=== PATIENT | female | born 1985 | race Caucasian/White ===

== ENCOUNTER 2016-10-23 21:47 | Emergency (ER) | payer OTHER ==
[~2016-10-23] VITALS: Ht 162.6 cm; Wt 79.0 kg
[2016-10-23 22:04] VITALS: Ht 162.6 cm; Wt 79.0 kg
--- NOTE | 2016-10-23 23:23 | ERA ---
ER Documentation Chief Complaint Date/Time DATE: 10/23/16 TIME: 23:20 Chief Complaint sore throat x 2 day HPI This is an overweight otherwise healthy 31-year-old female who presents with a chief complaint of sore throat 2 days. Patient has taken ibuprofen with minimal to moderate relief. Patient states when she lies down she has slightly more difficult time breathing. The patient denies shortness of breath, dysphagia, change in voice, drooling, fatigue, oral swelling, ear pain or meningismus. Patients vaccination status is up to date. Patient has no other complaints at this time's and describes no other associated manifestations. ROS All systems reviewed and are negative except as per history of present illness. Medications Home Meds Active Scripts Ibuprofen* (Ibuprofen*) 400 Mg Tablet, 400 MG PO Q6H Y for PAIN for 10 Days, TAB Prov:HENNY KENT PA-C 10/23/16 Amoxicillin* (Amoxicillin*) 500 Mg Cap, 500 MG PO BID for 10 Days, #20 CAP Prov:HENNY KENT PA-C 10/23/16 Allergies Allergies: Coded Allergies: No Known Allergy (Unverified , 10/23/16) PMhx/Soc Medical and Surgical Hx: pt denies Medical Hx, pt denies Surgical Hx Hx Alcohol Use: No Hx Substance Use: No Hx Tobacco Use: No Smoking Status: Never smoker Physical Exam Vitals Vital Signs Date Time Temp Pulse Resp B/P Pulse Ox O2 Delivery O2 Flow Rate FiO2 10/23/16 22:04 102.6 120 20 136/73 98 Physical Exam Const: Healthy-appearing, well-nourished, well-developed, no acute distress. Throat: Erythematous oropharynx with enlarged tonsils with exudates bilaterally. Moist mucous membranes. Neck: Anterior cervical lymphadenopathy bilaterally. No posterior cervical lymphadenopathy, masses or goiter palpated. Full range of motion. Supple. Trachea midline. ~ No meningismus. Skin: No petechiae or rashes. No ulcer, induration, jaundice. Good turgor. Resp: No dyspnea, stridor, tripoding or drooling. Good air movement. Clear to auscultation bilaterally. Head: Normocephalic, Atraumatic. No sinus tenderness. Eyes: Non-injected; No scleral erythema, discharge or foreign body. EOMI bilaterally. PERRLA. Ears: Normal External Ears, EACs clear, TM normal bilaterally without erythema. Nose: Normal nose without discharge, septal deviation, or sinus tenderness. Cardio: Regular rate and rhythm; No murmurs, gallops or rubs auscultated. No JVD grossly observed. Radial and posterior tibial pulses 2+ bilaterally. Capillary refill less than 2 seconds. Abd: Soft, non tender, non distended. No guarding, masses. Normal bowel sounds. No McBurney's point tenderness. MS: Normal motor strength, normal tone with gross examination. Back: No midline, flank or CVA tenderness. Ext: No cyanosis, edema or palpable cord. Normal movement of all extremities grossly observed. Neur: Awake, alert and oriented x3. Neurovascularly intact bilaterally. Psych: Active and alert. Normal Mood and Affect. Oriented x3. Results 24 hrs Current Medications Medications (Trade) Dose Ordered Sig/Jennifer Route PRN Reason Start Time Stop Time Status Last Admin Dose Admin Dexamethasone (Decadron) 4 mg ONCE ONCE PO 10/23/16 23:30 10/23/16 23:31 DC 10/23/16 23:27 Diphenhydramine HCl (Benadryl) 25 mg ONCE ONCE PO 10/23/16 23:30 10/23/16 23:31 DC 10/23/16 23:28 Procedures/MDM Patient was evaluated and worked up for pharyngitis presenting as described in the history and physical exam. Patient was given 4 mg p.o. of Decadron and 25 mg p.o. of Benadryl in the ED with improvement of symptoms. Patient along has a difficult time breathing. The patient has a [place] Criteria of 4 out of 5. The current most likely diagnosis is group B streptococcal pharyngitis versus tonsillitis. The treatment plan will thus include out-patient antibiotics and supportive measures. At this time I do not suspect diphtheria, Melba-Tan virus, peritonsillar abscess, epiglottitis, retropharyngeal abscess, parapharyngeal abscess, or allergic reaction. I no longer have suspicion for endangerment of the airway. I have spoke with the patient regarding their condition and future management. They have verbally responded that they understand their status and treatment plan which they have also agreed to. The patients vitals are stable, and their current condition is appropriate for discharge. The patient will be given discharge instructions with return precautions. Discharge medications: Amoxicillin 500 mg p.o. twice daily, ibuprofen 400 mg every 6 hours as needed. Departure Diagnosis: Primary Impression: Acute bacterial tonsillitis Additional Impression: Sore throat Condition: Stable Additional Instructions: Follow up with your PCP within the next 1-3 days for a more thorough evaluation and a possible referral to a specialist. Return the the emergency department immediately if symptoms worsen or change. If you have any questions regarding medications, ask your pharmacist or us before you leave. If any adverse reactions occur while taking your medications, discontinue the treatment and return to the emergency department immediately. Take your medications as directed, and complete the entire course of treatment. HENNY KENT PA-C Oct 23, 2016 23:23
[2016-10-23] MEDS ORDERED: DEXAMETHASONE 4 MG TAB PO ONE (23:30)
[2016-10-23] MEDS ORDERED: DIPHENHYDRAMINE 25 MG CAP PO ONE (23:30)
[2016-10-23] MEDS ORDERED: IBUP400T22 PO (23:38)
[2016-10-23] MEDS ORDERED: AMO500 PO (23:38)
== END 2016-10-24 00:03 | disposition home or self-care (01) ==
LOC: FTE 21:47
DX: J03.90 Acute tonsillitis, unspecified (principal)
CPT/HCPCS: Z7502; Z7610; 99283

== ENCOUNTER 2016-10-25 21:34 | Emergency (ER) | payer OTHER ==
[~2016-10-25] VITALS: Ht 170.2 cm; Wt 78.0 kg
[~2016-10-25 21:34] MED LIST: AMO500 PO; IBUP400T22 PO
[2016-10-25 21:52] VITALS: Ht 170.2 cm; Wt 78.0 kg
[2016-10-25] MEDS ORDERED: ACETAMINOPHEN 325 MG TAB PO ONE (23:00)
[2016-10-25] MEDS ORDERED: IBUPROFEN 600 MG TAB PO ONE (23:00)
--- NOTE | 2016-10-25 23:08 | ERD ---
ER Documentation Chief Complaint Date/Time DATE: 10/25/16 TIME: 23:02 Chief Complaint Continuous sore throat; was here last sunday for sore throat HPI 31-year-old female presents here in emergency department for complaints of continued sore throat, gingival inflammation, patient was seen here 3 days ago, was diagnosed acute bacterial pharyngitis, possible strep throat, patient's currently taking amoxicillin, patient states that the symptoms does not improve and gotten worse. Patient continues to have the pain, throbbing pain 8/10 scale , is worse upon swallowing. Patient continues to have fever. ROS All systems reviewed and are negative except as per history of present illness. Medications Home Meds Active Scripts Ibuprofen* (Ibuprofen*) 400 Mg Tablet, 400 MG PO Q6H Y for PAIN for 10 Days, TAB Prov:HENNY KENT PA-C 10/23/16 Amoxicillin* (Amoxicillin*) 500 Mg Cap, 500 MG PO BID for 10 Days, #20 CAP Prov:HENNY KENT PA-C 10/23/16 Allergies Allergies: Coded Allergies: No Known Allergy (Unverified , 10/23/16) PMhx/Soc Medical and Surgical Hx: pt denies Medical Hx, pt denies Surgical Hx Hx Alcohol Use: No Hx Substance Use: No Hx Tobacco Use: No Smoking Status: Never smoker FmHx Family History: No coronary disease, No diabetes, No other Physical Exam Vitals Vital Signs Date Time Temp Pulse Resp B/P Pulse Ox O2 Delivery O2 Flow Rate FiO2 10/25/16 21:52 100.6 100 20 122/69 98 Physical Exam GENERAL: The patient is well developed and appropriate for usual state of health, in no apparent distress. HEENT: Atraumatic. Ears: Normal tympanic membrane, no erythema or bulging. No ear canal swelling. No ear discharge. Nose: normal nasal turbinates, no erythema or swelling. Normal nasal discharge. Throat: oropharynx erythematous with +1 tonsillar swelling and bilateral tonsillar exudates noted. No lymphadenopathy. CHEST: Clear to auscultation bilaterally. There are no rales, wheezes or rhonchi. HEART: Regular rate and rhythm. No murmurs, clicks, rubs or gallops. No S3 or S4. ABDOMEN: Soft, nontender and nondistended. Good bowel sounds. No rebound or guarding. No gross peritonitis. No gross organomegaly or masses. No Fisher sign or McBurney point tenderness. BACK: No midline or flank tenderness. EXTREMITIES: Equal pulses bilaterally. There is no peripheral clubbing, cyanosis or edema. No focal swelling or erythema. Full range of motion. Grossly neurovascularly intact. NEURO: Alert and oriented. Cranial nerves 2-12 intact. Motor strength in all 4 extremities with 5/5 strength. Sensation grossly intact. Normal speech and gait. SKIN: There is no apparent rash or petechia. The skin is warm and dry. HEMATOLOGIC AND LYMPHATIC: There is no evidence of excessive bruising or lymphedema. No gross cervical, axillary, or inguinal lymphadenopathy. Results 24 hrs Laboratory Tests Test 10/25/16 22:50 Monoscreen Negative Current Medications Medications (Trade) Dose Ordered Sig/Jennifer Route PRN Reason Start Time Stop Time Status Last Admin Dose Admin Ibuprofen (Motrin) 600 mg ONCE ONCE PO 10/25/16 23:00 10/25/16 23:01 DC 10/25/16 23:10 Acetaminophen (Tylenol Tab) 650 mg ONCE ONCE PO 10/25/16 23:00 10/25/16 23:01 DC 10/25/16 23:10 Patient was given medicines for fever control here in the emergency department. After treatment, patient temperature improved and lower. Patient appears well and is hemodynamically stable. Procedures/MDM Medical decision making: Patient symptoms is likely consistent with acute bacterial pharyngitis, most likely strep throat. Low suspicion for peritonsillar abscess, mononucleosis, no symptoms of epiglottitis, laryngitis. No oral airway obstruction noted. No symptoms of sepsis at this time. Patient appears well and is hemodynamically stable. Patient was given for clindamycin, told to stop amoxicillin since it is not working, ibuprofen, Tylenol, prednisone is advised to follow-up with primary care doctor in 2-3 days for reevaluation of symptoms. Patient is advised to do salt water gargles. Patient is advised to return to emergency department for worsening symptoms. Disposition: Home. Stable. Departure Diagnosis: Primary Impression: Strep throat Condition: Stable Patient Instructions: Pharyngitis, Strep (Presumed) SANAM WHEELER NP Oct 25, 2016 23:08
[2016-10-26] MEDS ORDERED: IBUP-1542 PO (01:48)
[2016-10-26] MEDS ORDERED: CLIN-73 PO (01:48)
[2016-10-26] MEDS ORDERED: PRED50TA PO (01:48)
[2016-10-26] MEDS ORDERED: ACET500C5 PO (01:48)
[2016-10-26 02:34] VITALS: BP 118/77; PULSE 70; RESP 20; TEMP 98.6
== END 2016-10-26 02:35 | disposition home or self-care (01) ==
LOC: FTE 21:34
DX: J02.0 Streptococcal pharyngitis (principal)
CPT/HCPCS: 86308; Z7502; Z7610; 99284